=== PATIENT | female | born 1985 | race Caucasian/White ===

== ENCOUNTER 2016-10-15 12:12 | Emergency (ER) | payer OTHER ==
--- NOTE | 2016-10-15 14:34 | DIAGNOSTIC IMAGING REPORT ---
PROCEDURE: US ABDOMEN ULTRASOUND-LIMITED INDICATION: RUQ PAIN TECHNIQUE: Lantigua scale and color Doppler sonographic images of the abdomen were obtained. COMPARISON: None. FINDINGS: Liver, pancreas and gallbladder are normal. Normal CBD, 2.7 mm. Negative Pryor's sign. Aorta and IVC are patent. Normal hepatopetal flow. Normal right kidney. Ultrasound of the right lower quadrant demonstrated no evidence of mass or fluid collection. IMPRESSION: 1. Negative right upper quadrant ultrasound
--- NOTE | 2016-10-15 14:46 | ED CLINICAL REPORT ---
Clinical Report - Physicians/Mid Levels [facility] [address] [place] [address] 10/15/2016 12:15 Patient: ALBERT CARLOS Time Seen: 12:52; initial patient contact. Arrived- By private vehicle. Historian- patient. HISTORY OF PRESENT ILLNESS Chief Complaint: DIARRHEA. This started 1 months; One month of pain. Right sided pain increases with deep breath pain increased yesterday. States has been having diarrhea for over a month. States when she eats it feels like she is still really hungry.). She has had diarrhea and abdominal pain. No nausea, vomiting, constipation or fever. and is still present. The patient has had mild, intermittent right-sided flank pain. She has had diarrhea. No constipation. The illness is described as mild. Similar symptoms previously: None. Recent medical care: Not recently seen/assessed. REVIEW OF SYSTEMS No fever, muscle aches or difficulty with urination. All systems otherwise negative, except as recorded above. PAST HISTORY See nurses notes. Problems: Carpal Tunnel Syndrome. Seizure. Additional Surgeries: no known surgeries. Medications: Neurontin Oral. Allergies: No Known Drug Allergy. SOCIAL HISTORY No alcohol use or drug use. FAMILY HISTORY Negative. ADDITIONAL NOTES The nursing notes have been reviewed with agreement regarding the chief complaint, HPI, ROS, PMH and patient medications and allergies. PHYSICAL EXAM Vital Signs: 10/15/2016 14:53 BP: 108/62. HR: 71. RR: 18. O2 saturation: 99%. 10/15/2016 12:34 BP: 106/65. HR: 79. RR: 18. O2 saturation: 100%. Temp: 98.4 F. Have been reviewed. Appearance: Alert. Oriented X3. No acute distress. She is cooperative and appears comfortable and relaxed. She is cheerful, well hydrated and well developed and has normal color. Appearance is consistent with stated age. Eyes: Pupils equal, round and reactive to light. ENT: Ears normal. Nose normal. Neck: Normal inspection. Neck supple. CVS: Normal heart rate and rhythm. Heart sounds normal. Respiratory: No respiratory distress. Breath sounds normal. Abdomen: Soft. Mild tenderness in the right upper quadrant with guarding present. Positive Pryor's sign (and to bottom margin of the right lateral rib.). No rebound tenderness. Bowel sounds normal. No organomegaly. No mass. Back: Normal inspection. Mild CVA tenderness on the right. Skin: Skin warm and dry. Normal skin color. No rash. Normal skin turgor. Extremities: No lower extremity edema. Neuro: Oriented X 3. No motor deficit. No sensory deficit. Reflexes normal. LABS, X-RAYS, AND EKG Abdominal Sonogram: Normal study. . The study was independently viewed by me, interpreted by the radiologist and contemporaneously by me and discussed with the radiologist. Laboratory Tests: UA-Culture if indicated: (CAROLYNE: 10/15/2016 14:15) ( [facility] 10/15/2016 14:38) IP Test Result Flag Units (Reference) URINE COLOR YELLOW URINE APPEARANCE CLEAR URINE GLUCOSE NEGATIVE (NEGATIVE) URINE BILIRUBIN NEGATIVE (NEGATIVE) URINE KETONE NEGATIVE (NEGATIVE) URINE SPECIFIC GRAVITY 1.015 (1.010-1.030) URINE PH 6.5 (5.0-8.0) URINE PROTEIN NEGATIVE (NEGATIVE) URINE UROBILINOGEN 0.2 EU/dL (0.2-1.0) URINE NITRITE NEGATIVE (NEGATIVE) URINE BLOOD NEGATIVE (NEGATIVE) URINE LEUK ESTERASE NEGATIVE (NEGATIVE) CBC w Diff: (CAROLYNE: 10/15/2016 13:15) ( [facility] 10/15/2016 13:36) Final results Test Result Flag Units (Reference) WHITE BLOOD COUNT 3.7 L K/uL (4.5-11.5) RED BLOOD COUNT 4.07 M/uL (4.00-5.20) HEMOGLOBIN 12.3 gm/dL (12.0-16.0) HEMATOCRIT 36.8 % (36.0-46.0) MEAN CELL VOLUME 90 fL (80-100) MEAN CORPUSCULAR HGB 30 pg (26-34) MEAN CORPUSCULAR HGB CONC 33 g/dL (31-37) RED CELL DISTRIBUTION WIDTH 15.1 H % (11.6-14.8) PLATELET COUNT 230 K/uL (150-400) NEUTROPHIL % 47.7 L % (50-75) LYMPH % 42.3 H % (25-40) MONO % 7.5 % (3-14) EOSINOPHIL % 1.9 % (0-4) BASOPHIL % 0.6 % (0-2) CMP: (CAROLYNE: 10/15/2016 13:15) ( MsgRcvd 10/15/2016 13:44) Final results Test Result Flag Units (Reference) GLUCOSE 91 mg/dL (70-110) BUN 7 mg/dL (7-18) CREATININE 0.7 mg/dL (0.6-1.3) Estimated GFR >60 mL/min Estimated GFR- >60 mL/min Note: Persistent reduction over 3 months in eGFR<60 mL/min/1.73 m2 defines CKD. Patients with eGFR values>=60 mL/min/1.73 m2 may also have CKD if evidence ofpersistent proteinuria. Additional information may be foundat www.kidney.org. SODIUM 141 mmol/L (136-145) POTASSIUM 4.1 mmol/L (3.5-5.1) CHLORIDE 106 mmol/L (98-107) CARBON DIOXIDE 27 mmol/L (21-32) CALCIUM 8.8 mg/dL (8.5-10.1) TOTAL PROTEIN 7.5 g/dL (6.4-8.2) ALBUMIN 4.1 g/dL (3.3-5.0) BILIRUBIN, TOTAL 0.3 mg/dL (0.0-1.0) ALKALINE PHOSPHATASE 64 U/L (46-116) AST (SGOT) 17 U/L (15-37) ALT (SGPT) 23 U/L (12-78) . PROGRESS AND PROCEDURES Course of Care: Patient is stable. Physical exam findings are improved. Symptoms better. Patient/family counseled. CLINICAL IMPRESSION Chronic irritable bowel syndrome with diarrhea. INSTRUCTIONS Rest. Drink plenty of fluids. Avoid alcohol and NSAIDS. NSAIDS include aspirin, ibuprofen (Advil) and naproxen (Aleve). Avoid fatty, fried/greasy, lactose-containing (such as milk, cheese and ice cream) and spicy foods until better. (if your sx fail to improve you need to see your pcp.). Warnings: Further evaluation is necessary. It is very important to follow up with a physician. Your Current Medications: CONTINUE TAKING THE FOLLOWING MEDICATIONS: Neurontin Oral. Follow-up: Follow up with your doctor Monday even if well. Understanding of the discharge instructions verbalized by patient and parent. (Electronically signed by Zarina Ordoñez PA-C 10/15/2016 22:39)
--- NOTE | 2016-10-15 14:47 | ED ORDER SUMMARY ---
..... Patient: ALBERT CARLOS OrderSheet [facility] VisitID: [id number] [place] [address] 30y, F Registration Date/Time: 10/15/2016 ORDER SHEET Weight: 55.7 kg (stated) Allergies: No Known Drug Allergy GENERAL ORDERS: US Abdomen Limited (Yes) (right upper quad pain for several days, with diarrhea for a month) Urgent (12:59 10/15/2016 ABlanchette PA-C) (Ack 13:01 IJurca ER Tech1) (14:48 IJurca ER Tech1) CMP Urgent (12:59 10/15/2016 ABlanchette PA-C) (Ack 13:01 IJurca ER Tech1) (Sent 13:19 IJurca ER Tech1) (13:19 IJurca ER Tech1) CBC w Diff Urgent (12:59 10/15/2016 ABlanchette PA-C) (Ack 13:01 IJurca ER Tech1) (Sent 13:19 IJurca ER Tech1) (13:19 IJurca ER Tech1) UA-Culture if indicated Urgent (12:59 10/15/2016 ABlanchette PA-C) (Ack 13:01 IJurca ER Tech1) (14:47 IJurca ER Tech1) MEDICATION ORDERS: IV FLUIDS: ORDER SHEET NOTES: [Electronically signed by Zelda Dillard R.N. (18:49 10/15/2016)] [Electronically signed by Zarina Ordoñez PA-C (22:39 10/15/2016)] [Electronically locked/signed by Zelda Dillard R.N. (18:49 10/15/2016)]
--- NOTE | 2016-10-15 14:47 | ED ORDER SUMMARY ---
..... Patient: ALBERT CARLOS OrderSheet [facility] VisitID: [id number] [place] [address] 30y, F Registration Date/Time: 10/15/2016 ORDER SHEET Weight: 55.7 kg (stated) Allergies: No Known Drug Allergy GENERAL ORDERS: US Abdomen Limited (Yes) (right upper quad pain for several days, with diarrhea for a month) Urgent (12:59 10/15/2016 ABlanchette PA-C) (Ack 13:01 IJurca ER Tech1) (14:48 IJurca ER Tech1) CMP Urgent (12:59 10/15/2016 ABlanchette PA-C) (Ack 13:01 IJurca ER Tech1) (Sent 13:19 IJurca ER Tech1) (13:19 IJurca ER Tech1) CBC w Diff Urgent (12:59 10/15/2016 ABlanchette PA-C) (Ack 13:01 IJurca ER Tech1) (Sent 13:19 IJurca ER Tech1) (13:19 IJurca ER Tech1) UA-Culture if indicated Urgent (12:59 10/15/2016 ABlanchette PA-C) (Ack 13:01 IJurca ER Tech1) (14:47 IJurca ER Tech1) MEDICATION ORDERS: IV FLUIDS: ORDER SHEET NOTES: [Electronically signed by Zelda Dillard R.N. (18:49 10/15/2016)] [Electronically signed by Zarina Ordoñez PA-C (22:39 10/15/2016)] [Electronically locked/signed by Zelda Dillard R.N. (18:49 10/15/2016)]
--- NOTE | 2016-10-15 14:47 | ED NURSING NOTES ---
Clinical Report - Nurses [facility] [address] [place] [address] 10/15/2016 12:15 Patient: ISRAEL CARLOS TRIAGE Triage time 12:Oct 15 2016. Acuity: LEVEL 3. Chief Complaint: ABDOMINAL PAIN and DIARRHEA. ATA COMA SCORE: Ata Coma Scale: 15- eyes open spontaneously (4); best verbal response- oriented x 4 (5); best motor response- obeys commands (6). --12:39 Gurvinder Potts R.N. 12:34 10/15/16. BP: 106/65. HR: 79. RR: 18. O2 saturation: 100%. Temp: 98.4 F. Pain level now 8/10. --12:39 Gurvinder Potts R.N. Weight: 55.7 kg stated. Height/Length: 62 inches Per Patient. BMI: 22.5. --12:38 Gurvinder Potts R.N. Medications Neurontin Oral. --12:37 Gurvinder Potts R.N. Allergies No Known Drug Allergy. --12:37 Gurvinder Potts R.N. History Arrived by private vehicle. Historian: patient. Accompanied by family. ( One month of pain. Right sided pain increases with deep breath pain increased yesterday. States has been having diarrhea for over a month. States when she eats it feels like she is still really hungry.). She has had diarrhea and abdominal pain. No nausea, vomiting, constipation or fever. PAST MEDICAL HX: No history of diabetes mellitus. No history of gastroesophageal reflux disease, peptic ulcer disease or gallstones. Immunizations: up-to-date. Last normal menstrual period- 1 weeks ago. SOCIAL HX: Never smoker. Occasional alcohol use. No drug use. No recent travel. No known contact with a sick individual. SELF HARM ASSESSMENT: A self harm assessment was performed. The patient answered "no" to the question "Have you recently felt down, depressed, or hopeless?" and "Do you have thoughts of harming or killing yourself?". FALL RISK ASSESSMENT: Fall risk assessment completed. No fall risk identified. NUTRITIONAL RISK ASSESSMENT: The nutritional risk assessment revealed no deficiencies. FUNCTIONAL ASSESSMENT: Functional assessment: no impairments noted. LEARNING NEEDS ASSESSMENT: The learning needs assessment revealed no barriers. ABUSE ASSESSMENT: Abuse assessment: (yes). SKIN INTEGRITY ASSESSMENT: Skin integrity risk assessment completed. No skin integrity risk identified. --12:39 Gurvinder Potts R.N. PROBLEMS: Carpal Tunnel Syndrome. Seizure. --12:37 Gurvinder Potts R.N. ADDITIONAL SURGERIES: no known surgeries. Interventions ID band on patient. --12:39 Gurvinder Potts R.N. PHYSICAL ASSESSMENT Ambulatory to room. GENERAL / NEURO / PSYCH: Alert. Oriented X 4. Appears in pain. HEENT: Mucous membranes are pink. RESPIRATORY: Respirations not labored. Breath sounds within normal limits. CVS: Normal sinus rhythm noted. Capillary refill less than 2 seconds. GI / : The patient has diarrhea. Abdomen soft and nontender. Bowel sounds within normal limits. Normal genitalia. Stool color normal. ( Right sided pain more between ribs then able to palpate on exam. Denies pain or burning with voiding.). SKIN: Skin is warm and dry. --12:40 Gurvinder Potts R.N. NURSING PROGRESS NOTES The initial plan of care for this patient includes an assessment with efforts to address patient positioning, appropriate ambient lighting and comfortable environmental temperature; impairment of the gastrointestinal system. Pulse oximeter and NIBP monitor placed on patient. Patient gowned. Reassurance given. Call light placed in reach. Side rails up x 1. Bed placed in lowest position. Brakes of bed on. --12:40 Gurvinder Potts R.N. Patient ID band checked for patient name and birthdate: patient confirmed. Blood samples drawn from the left antecubital space with 23g butterfly by tech per protocol ; labeled in presence of the patient and sent to lab: rainbow set and red, green, purple and blue top. --13:18 Israel Johnson. DISPOSITION / DISCHARGE Departure time: 1453. Condition at departure: improved. No learning barriers present. Discharge instructions provided and reviewed with the patient. Reviewed referrals. Verbalized understanding. Written instructions provided. The patient was discharged home and accompanied by parent. She left the Emergency Department ambulatory and via private vehicle. Parent driving. --18:49 Zelda Dillard R.N. 14:53 10/15/16. BP: 108/62. HR: 71. RR: 18. O2 saturation: 99%. --18:49 Zelda Dillard R.N. Locked/Released at 10/15/2016 18:49 by Zelda Dillard R.N.
--- NOTE | 2016-10-15 22:39 | ED MED RECONCILIATION SUMMARY ---
Patient: ALBERT CARLOS Medication Reconciliation Report [facility] VisitID: [id number] [address] [place] [address] 30y, F Registration Date/Time: 10/15/2016 Weight: 55.7 kg Height/Length: 62 in. BMI: 22.5 ALLERGIES: No Known Drug Allergy The patient's Home Medications are listed below: CONTINUE TAKING THE FOLLOWING MEDICATIONS: Neurontin Oral The source(s) of the original Home Medication information: Not obtained. The following Medications were given to the patient in the Emergency Department: None. The following Medications were prescribed to the patient: None.
--- NOTE | 2016-10-15 22:39 | ED DISCHARGE INSTRUCTIONS ---
Patient: ALBERT CARLOS General Instructions [facility] VisitID: [id number] [place] [address] 30y, F Registration Date/Time: 10/15/2016 Chronic irritable bowel syndrome with diarrhea. INSTRUCTIONS Rest. Drink plenty of fluids. Avoid alcohol and NSAIDS. NSAIDS include aspirin, ibuprofen (Advil) and naproxen (Aleve). Avoid fatty, fried/greasy, lactose-containing (such as milk, cheese and ice cream) and spicy foods until better. (if your sx fail to improve you need to see your pcp.). Warnings: Further evaluation is necessary. It is very important to follow up with a physician. Your Current Medications: CONTINUE TAKING THE FOLLOWING MEDICATIONS: Neurontin Oral. Follow-up: Follow up with your doctor Monday even if well. Understanding of the discharge instructions verbalized by patient and parent. ADDITIONAL INFORMATION Irritable Bowel Syndrome Irritable Bowel Syndrome (IBS) is a disorder of the intestines. It causes one of three patterns of symptoms: Chronic abdominal pain and constipation (spastic colitis) Recurring episodes of diarrhea, with or without pain Alternating diarrhea and constipation The cause of IBS is not known. Symptoms are usually mild and can be controlled by learning to manage stress and making changes in your diet and lifestyle. These include: Constipation may be avoided by increasing fiber in your diet. Fiber supplements, psyllium (Metamucil) or methylcellulose (Citrucel) with extra fluids are also helpful. Diarrhea can be treated with careful use of [id number] medicines such as loperamide (Imodium). Bloating or passing excess gas may be controlled by limiting your intake of carbonated beverages, salads, raw fruits and vegetables, cabbage, broccoli and cauliflower. Stress often benefits from counseling as well as self-help measures such as exercise, yoga, and meditation. More severe symptoms may require prescription medicine. Depression can be a component of this illness and antidepressant medicine may be prescribed. This may actually help with diarrhea, constipation, cramping as well as symptoms of depression. Intestinal cramping may benefit from anticholinergic medicine. Home Care: Look for factors that seem to worsen your symptoms such as stress and emotions, rapid or irregular eating habits, overuse of laxatives or enemas. Certain foods such as fatty foods, fried foods, caffeine, and dairy products may worsen your symptoms. Keep a food log to figure out what you are sensitive to. If you have constipation, putting more fiber into your diet will help. Foods high in fiber include fresh fruits and peelings you can eat, raw or lightly cooked vegetables, whole grain cereals, nuts, dried beans and peas. Bran is also a very good source of fiber. If severe stress is a factor in your life and self help methods are not working, talk to your doctor about ways to manage stress. Follow Up with your doctor or as directed by our staff if you do not begin to improve over the next 2-3 days. Get Prompt Medical Attention if any of the following occur: Increase in abdominal pain Constant abdominal pain that moves to the right-lower abdomen Persistent vomiting (can't keep liquids down) Excessive diarrhea Blood in your stool (red or black color) or mucus in your stool Feeling very weak or dizzy, fainting or extreme thirst Fever of 100.4F (38C) or higher, or as directed by your healthcare provider You have been given the following additional information: Irritable Bowel Syndrome Rest. (Electronically signed by Zarina Ordoñez PA-C 10/15/2016 22:39)
--- NOTE | 2016-10-15 22:39 | ED MED RECONCILIATION SUMMARY ---
Patient: ALBERT CARLOS Medication Reconciliation Report [facility] VisitID: [id number] [address] [place] [address] 30y, F Registration Date/Time: 10/15/2016 Weight: 55.7 kg Height/Length: 62 in. BMI: 22.5 ALLERGIES: No Known Drug Allergy The patient's Home Medications are listed below: CONTINUE TAKING THE FOLLOWING MEDICATIONS: Neurontin Oral The source(s) of the original Home Medication information: Not obtained. The following Medications were given to the patient in the Emergency Department: None. The following Medications were prescribed to the patient: None.
--- NOTE | 2016-10-15 22:39 | ED MAR SUMMARY ---
..... Medication Administration Record [facility] [address] [place], [place] [id number] Patient: ALBERT CARLOS Visit ID: [id number] 30y, F Weight: 55.7 kg Height/Length: 62 in BMI: 22.5 ALLERGIES: No Known Drug Allergy
--- NOTE | 2016-10-15 22:39 | ED MAR SUMMARY ---
..... Medication Administration Record [facility] [address] [place], [place] [id number] Patient: ALBERT CARLOS Visit ID: [id number] 30y, F Weight: 55.7 kg Height/Length: 62 in BMI: 22.5 ALLERGIES: No Known Drug Allergy
== END 2016-10-15 14:53 | disposition home or self-care (01) ==
LOC: ED SRH 12:12
DX: K58.0 Irritable bowel syndrome with diarrhea (principal); Z79.899 Other long term (current) drug therapy
CPT/HCPCS: 81460; 90004; 90074; 90100; 95059